=== PATIENT | male | born 2000 | race Caucasian/White ===

== ENCOUNTER 2024-08-09 12:45 | Outpatient (CLI) | payer OTHER, SELFPAY ==
--- NOTE | 2024-08-09 12:48 | XR_ITS ---
FINAL REPORT CLINICAL HISTORY: dyspnea..pleurisy pain shielded FINDINGS: PA and lateral views of the chest are obtained. There is no prior exam for comparison. The cardiac and mediastinal silhouettes are within normal limits. The lungs are clear. There is no pleural effusion, pneumothorax, or acute osseous abnormality. IMPRESSION: No radiographic evidence of acute cardiac or pulmonary disease. Reviewed, Interpreted and Dictated by Gladis Goyal MD Transcribed by Nova Melgar Authenticated and [facility]
--- NOTE | 2024-08-09 12:48 | XR_ITS ---
FINAL REPORT CLINICAL HISTORY: abd pain..lt side shielded FINDINGS: TWO-VIEW ABDOMEN Flat and upright views of the abdomen were obtained. The bowel gas pattern is unremarkable. There is no free air. No renal stones are identified. A right pelvic calcification is favored to represent a phlebolith. The bony structures are intact. IMPRESSION: No acute abnormality. Reviewed, Interpreted and Dictated by Gladis Goyal MD Transcribed by oNva Melgar Authenticated and . [facility]
== END 2024-08-09 23:59 | disposition home or self-care (01) ==
PROVIDERS: PCP Nurse Practitioner Family; Visit Provider Nurse Practitioner Family
DX: R06.00 Dyspnea, unspecified (principal); R10.9 Unspecified abdominal pain
CPT/HCPCS: 71046; 74019

== ENCOUNTER 2025-04-18 13:20 | Outpatient (CLI) | payer OTHER, SELFPAY ==
[2025-04-18 12:52] LABS: Microscopic, Urine URINE MICROSCOPIC (MICROSCOPIC)
--- OUTSIDE RECORDS SUMMARY | 2025-04-18 13:24 | XMS_ITS | Clinical Summary ---
[facility] Address [address] [place] [address] Care Team Providers Care Residential Builder Name Role Phone Rancho Gomes MD Primary Care Provider [phone] Allergies Active Allergy Reactions Criticality Noted Date Comments Penicillins Rash Low 10/27/2015 Medications loratadine (CLARITIN) 10 MG tablet Take 10 mg by mouth Daily. Active venlafaxine (EFFEXOR) 75 MG tablet 1 Active ALPRAZolam (XANAX) 0.25 MG tablet 1 Active venlafaxine XR (Effexor XR) 150 MG 24 hr capsule Take 1 capsule by mouth Daily with 75 mg capsule for total daily dose of 225 mg. 90 capsule 1 2 Active venlafaxine XR (Effexor XR) 75 MG 24 hr capsule Take 1 capsule by mouth Daily with 150 mg capsule for total daily dose of 225 mg. 90 capsule 1 2 Active Azelastine-Flu ticasone (Dymista) 137-50 MCG/ACT suspension Use 2 sprays into both nostrils twice a day 23 g 6 2 Active levocetirizine (Xyzal Allergy 24HR) 5 MG tablet Take 1 tablet by mouth once a day 30 tablet 6 08/26/2021 3:06 PM EDT 2 Active sulfamethoxazo le-trimethopri m (BACTRIM DS,SEPTRA DS) 800-160 MG per tablet Take 1 tablet by mouth Every 12 (Twelve) Hours. 20 tablet 09/01/2021 2:59 PM EDT 2 Active venlafaxine XR (Effexor XR) 150 MG 24 hr capsule Take 1 capsule by mouth Daily. Take with 75 mg for total of 225 mg daily. 90 capsule 1 10/15/2021 2:32 PM EDT 2 Active venlafaxine XR (Effexor XR) 75 MG 24 hr capsule Take 1 capsule by mouth Daily. Take with 150 mg for total of 225 mg daily. 90 capsule 1 10/15/2021 2:32 PM EDT 2 Active sertraline (ZOLOFT) 50 MG tablet Take 50 mg by mouth Daily. 021 Discontinued Active Problems No known active problems Immunizations Immunization Administration Dates Next Due COVID-19 (Social Recruiting) Purple Cap Monovalent 06/19/19 21,05/24/2020 PPD Test 10/12/2016 Family History Medical History Relation Name Comments Hypertension Father Hypertension Mother Relation Name Status Comments Father Mother Social History Tobacco Use Types Packs/Day Years Used Date Smoking Tobacco: Never Smokeless Tobacco: Never Alcohol Use Standard Drinks/Week Comments Yes 3 (1 standard drink = 0.6 oz pur e alcohol) socially Abuse Screen Answer Date Recorded Unsafe at Home or Work/School Not on file Feels Threatened by Someone? Not on file 01/2023 Does Anyone Keep You from Co ntacting Others or Doint Things Outside the Home? Not on file 02/22/2023 Physical Sign of Abuse Present Not on file 1 Housing Stability Answer Date Recorded Current Living Arrangements Not on file 01/2023 Potentially Unsafe Housing Conditions Not on abel e 02/22/2023 Family and Community Support Answer Bruce e Recorded Help with Day-to-Day Activities Not on file 02/22/2023 Lonely or Isolated Not on file 02/22/2023 Employment Answer Date Recorded Do you want help finding or keeping work or a fanta b? Not on file 02/22/2023 Disabilities Answer Date Recorded Concentrating, Remembering, or Making Decisions Difficulty Not on file 02/22/2023 Doing Errands Independently Difficulty Not on fi le 02/22/2023 Education Answer Date Recorded Help with school or training? Not on file Preferred Language Not on file 02/22/2023 Sex and Gender Information Value Date Recorded Sex Assigned at Not on file Legal Sex Male 11:33 AM EDT Gender Identity Not on file Sexual Orientation Not on file Last Filed Vital Signs Vital Sign Reading Time Taken Comments Blood Pressure 131/82 04/01/2021 9:37 AM EST Pulse 98 04/01/2021 9:37 AM EST Temperature 36.1 C (96.9 F) 04/01/2021 9:37 AM EST Respiratory Rate 16 04/01/2021 9:37 AM EST Oxygen Saturation 96% 04/01/2021 9:37 AM EST Inhaled Oxygen Concentration - - Weight 81.6 kg (180 lb) 04/01/2021 9:37 AM EST Height 177.8 cm (5' 10 ) 04/01/2021 9:37 AM EST Body Mass Index 25.83 04/01/2021 9:37 AM EST Plan of Treatment Health Maintenance Due Date Last Done Comments ANNUAL PHYSICAL 06/11/2017 HEPATITIS C SCREENING 06/11/2017 TDAP/TD VACCINES (1 - Tdap) 09/20/2018 INFLUENZA VACCINE 12/15/2024 Pneumococcal Vaccine 0-49 Aged Out No longer eligible based on patient's age to complete this topic Insurance [employer] Care Teams Residential Builder Relationship Specialty Start Date End Date Rancho Gomes MD PCP - General Internal Medicine 06/25/21
[2025-04-18 13:25] LABS: Hematocrit 48.4 % (42.0-52.0); Hemoglobin 15.5 g/dL (14.1-18.0); Immature Granulocytes % 0.9 %; Mean Corpuscular HGB Conc 32.0 g/dL (31.8-35.4); Mean Corpuscular Hemoglobin 27.5 pg (27.0-31.2); Mean Corpuscular Volume 86.0 fl (80-94); Nucleated Red Blood Cells % 0 %; Platelet Count 252 K/mm3 (142-424); Red Blood Count 5.63 M/mm3 (4.60-6.20); Red Cell Distribution Width-SD 37.2 fL; White Blood Count 6.4 K/mm3 (4.8-10.8)
[2025-04-18 13:49] LABS: Bilirubin,Urine Negative (Negative); Color,Urine YELLOW (Yellow); Glucose,Urine (UA) Negative (Negative); Ketones,Urine Negative (Negative); Leukocyte Esterase,Urine Negative (Negative); PH,Urine 7.0 (5.0-8.5); Protein,Urine Negative (Negative); Specific Gravity, Urine 1.015 (1.005-1.030); Urobilinogen,Urine 0.2 EU/dl (0.2)
[2025-04-18 14:00] LABS: Alanine Aminotransferase 42 U/L (12-78); Albumin Level 5.1 g/dl (3.5-5.0); Albumin/Globulin Ratio 1.7 (1.1-1.8); Alkaline Phosphatase 78 U/L (38-126); Anion Gap 11.2 mEq/L (5-15); Aspartate Amino Transferase 38 U/L (17-59); Bilirubin,Total 0.6 mg/dl (0.2-1.3); Blood Urea Nitrogen 11 mg/dl (9-20); Calcium 9.8 mg/dl (8.4-10.2); Carbon Dioxide 28 mmol/L (22.0-30.0); Chloride 100 mmol/L (98-107); Cholesterol 236 mg/dl (140-200); Creatinine,Serum 1.00 mg/dl (0.66-1.25); Estimated Glomerular Filt Rate 91 ml/min (>60); GFR (African American) 110 ML/MIN (>60); Globulin 3.0 g/dL (1.3-3.2); Glucose 77 mg/dl (74-100); HDL Cholesterol 53 mg/dl (40-60); Potassium 4.2 mmoL/L (3.5-5.1); Sodium 135 mmol/L (136-145); Total Protein,Serum 8.1 g/dl (6.3-8.2); Triglycerides 150 mg/dl (30-150)
[2025-04-18 14:04] LABS: Squamous Epithelial Cell,Urine Occasional #/hpf (0-5); WBC,Urine Occasional #/hpf (0-3)
[2025-04-18 14:18] LABS: Free T4 (Free Thyroxine) 1.01 ng/dl (0.78-2.19)
[2025-04-18 14:19] LABS: Total Iron Binding Capacity 317 ug/dL (261-462)
[2025-04-18 14:22] LABS: 25-OH Vitamin D, Total 31.8 ng/mL (30-100)
[2025-04-18 14:35] LABS: Thyroid Stimulating Hormone 0.64 uIU/mL (0.465-4.68)
[2025-04-18 14:39] LABS: Ferritin 85.4 ng/ml (17.9-464)
[2025-04-18 14:50] LABS: Hepatitis C Ab Qual. W/ RFX NEGATIVE (Negative)
[2025-04-18 14:54] LABS: Vitamin B12 310 pg/mL (239-931)
[2025-04-18 16:57] LABS: Iron 109 ug/dL (49-181)
[2025-04-18 18:27] LABS: Hemoglobin A1C 4.8 % (4.0-6.0)
[2025-04-19 12:13] LABS: Testosterone,Total 278 ng/dL (264-916)
== END 2025-04-18 23:59 | disposition home or self-care (01) ==
LOC: LAB.DROPOF 13:20
PROVIDERS: PCP Nurse Practitioner Family; Visit Provider Nurse Practitioner Family
DX: F41.1 Generalized anxiety disorder (principal); F33.1 Major depressive disorder, recurrent, moderate; Z11.59 Encounter for screening for other viral diseases; Z11.4 Encounter for screening for human immunodeficiency virus [HIV]; Z13.21 Encounter for screening for nutritional disorder; Z13.29 Encounter for screening for other suspected endocrine disorder; Z13.220 Encounter for screening for lipoid disorders; Z68.30 Body mass index [BMI] 30.0-30.9, adult; I10 Essential (primary) hypertension; E11.9 Type 2 diabetes mellitus without complications; R41.3 Other amnesia; G47.33 Obstructive sleep apnea (adult) (pediatric)
CPT/HCPCS: 80053; 80061; 81001; 82306; 82607; 82728; 83036; 83540; 83550; 84403; 84439; 84443; 85025; 86803; 87086; 87389